=== PATIENT | female | born 1985 | race Asian ===

== ENCOUNTER 2019-07-16 09:27 | Emergency (ER) | payer BC ==
[~2019-07-16] VITALS: Ht 162.6 cm; Wt 65.8 kg
[2019-07-16 09:34] VITALS: BP 138/92
== END 2019-07-16 09:54 | disposition home or self-care (01) ==
LOC: ER 09:30
DX: J32.9 Chronic sinusitis, unspecified (principal); K58.9 Irritable bowel syndrome, unspecified; E11.9 Type 2 diabetes mellitus without complications

== ENCOUNTER 2024-03-16 23:30 | Emergency (ER) | payer BC ==
[~2024-03-16] VITALS: Ht 172.7 cm; Wt 90.7 kg
[2024-03-17] MEDS ORDERED: predniSONE 20 MG TABLET ONE (01:14)
[2024-03-17] MEDS: predniSONE 50 MG TABLET PO ONE (01:14)
[2024-03-17 01:22] VITALS: BP 148/97; TEMP 98; O2SAT 99
== END 2024-03-17 01:23 | disposition home or self-care (01) ==
LOC: ER 23:32
DX: L50.9 Urticaria, unspecified (principal); R20.2 Paresthesia of skin; T36.8X5A Adverse effect of other systemic antibiotics, initial encounter; F31.9 Bipolar disorder, unspecified
CPT/HCPCS: 99283; J7512